=== PATIENT | female | born 1960 | race Caucasian/White ===

== ENCOUNTER → 2018-08-01 | Outpatient (CLI) | payer BC ==
--- NOTE | 2018-08-01 12:13 | REPMRS ---
Patient History The patient states she had a clinical breast exam in 07/2018. Patient is postmenopausal and is nulliparous. Family history of pancreatic cancer at age 50 in maternal uncle. No Hormone Replacement Therapy 3D TOMOSYNTHESIS WAS PERFORMED. Digital Woman Screen Mammo: August 01, 2018 - Exam #: [id number] Bilateral CC and MLO view(s) were taken. Technologist: Wanda Philip, Technologist Prior study comparison: May 27, 2015, digital woman screen mammo performed at [facility]. February 22, 2014, digital woman screen mammo performed at [facility] to [facility]. FINDINGS: There are scattered fibroglandular densities. There has been no change in the appearance of the mammogram from the prior studies. There is a mild amount of residual fibroglandular tissue which is fairly symmetric. There is no interval development of dominant mass, architectural distortion, or clustered microcalcification suggestive of malignancy. Assessment: BI-RADS/ACR category 1 mammogram. Negative Mammogram. Recommendation Routine screening mammogram in 1 year (for women over age 40). This mammogram was interpreted with the aid of an FDA-approved computer-aided dectection system. Electronically Signed By: Harjinder Cohn MD 08/01/18 9768
== END ==
LOC: M WHC 10:32
PROVIDERS: ATTEND Nurse Practitioner Family
DX: Z12.31 Encounter for screening mammogram for malignant neoplasm of breast (principal); Z78.0 Asymptomatic menopausal state

== ENCOUNTER → 2018-08-01 | Outpatient (REF) | payer BC ==
[2018-08-06 14:09] LABS: HPV HYBRID CAPTURE II Negative (Negative)
== END ==
LOC: M SFHCWAGY 11:03
PROVIDERS: ATTEND Nurse Practitioner Family
DX: Z12.72 Encounter for screening for malignant neoplasm of vagina (principal); N95.2 Postmenopausal atrophic vaginitis
CPT/HCPCS: 87624; G0123

== ENCOUNTER → 2019-04-14 | Outpatient (CLI) | payer BC ==
--- NOTE | 2019-04-14 09:33 | REP ---
Digital diagnostic unilateral left breast mammography with CAD, 3-D tomography, and focused left breast sonography. History: Palpable lump present times 2 weeks. Comparison mammography August 01, 2018, May 27, 2015, and February 22, 2014. Mammographic findings: A opaque skin marker is affixed to the skin at the site of the palpable lump. Mammographically, this projects in the superior and medial quadrant of the left breast. I see that the patient directed the solutions developer to the 12 o'clock position. In any event there is no abnormal mammographic mass or spiculated density in any portion of the left breast. No microcalcification or architectural distortion is seen. No worrisome skin change is seen. Scattered fibroglandular elements are seen unchanged from prior mammography. Sonographic findings: Focused left breast sonography in the area of the palpable lump shows slightly heterogeneous fibroglandular background echotexture. No mass is seen by ultrasound. No cyst, architectural distortion, or area of suspicious shadowing is appreciated. Impression: BIRADS 1: BI-RADS/ACR category 1 mammogram. Negative Mammogram. BIRADS category 1 negative findings. Clinical followup is advised. This mammogram was interpreted with the aid of an FDA-approved computer-aided detection system. The patient states she had a clinical breast exam in March 2019. The patient letter being requested is m2. This patient's estimated Tyrer-Cuzick lifetime risk assessment for the breast cancer is 6.8 %.
== END ==
LOC: M WHC 07:37
PROVIDERS: ATTEND Nurse Practitioner
DX: N63.21 Unspecified lump in the left breast, upper outer quadrant (principal)
CPT/HCPCS: 76642; 77065; G0279

== ENCOUNTER → 2019-10-09 | Outpatient (CLI) | payer BC ==
--- NOTE | 2019-10-27 08:36 | REPMRS ---
Patient History The patient states she had a clinical breast exam in 09/2019. Patient is postmenopausal and is nulliparous. Family history of pancreatic cancer at age 50 in maternal uncle. No Hormone Replacement Therapy Digital Woman Screen Mammo: October 09, 2019 - Exam #: [id number] Bilateral CC and MLO view(s) were taken. Technologist: Roula Ramirez, Technologist Prior study comparison: April 14, 2019, left breast diagnostic unilateral mammo performed at [facility]. August 01, 2018, bilateral digital woman screen mammo performed at [facility]. May 27, 2015, digital woman screen mammo performed at [facility]. February 22, 2014, digital woman screen mammo performed at [facility]. FINDINGS: There are scattered fibroglandular densities. The Volpara volumetric breast density category is:B. There is a 8 mm somewhat spiculated neodensity visible on today'ys CC view. It is not visible on the MLO. Th=is merits further evaluation. There has been no other change in the appearance of the mammogram from the prior studies. There is a mild amount of scattered fibroglandular density which is fairly symmetric. There is no interval development of dominant mass, architectural distortion, or grouped microcalcification suggestive of malignancy. 3-D tomosynthesis shows no additional findings. Assessment: BI-RADS/ACR category 0 mammogram, Incomplete: Need additional imaging evaluation and/or prior mammograms for comparison. Recommendation Ultrasound and special view mammogram of the left breast. This patient's Lifetime Breast Cancer Risk is estimated at 6.6 %. This mammogram was interpreted with the aid of an FDA-approved computer-aided dectection system. Electronically Signed By: Cuauhtemoc Sandoval MD 10/27/19 0801
== END ==
LOC: M WHC 09:59
PROVIDERS: ATTEND Nurse Practitioner Family
DX: Z12.31 Encounter for screening mammogram for malignant neoplasm of breast (principal)

== ENCOUNTER → 2019-10-26 | Outpatient (CLI) | payer BC ==
--- NOTE | 2019-11-23 15:53 | REP ---
DIAGNOSTIC MAMMOGRAM LEFT BREAST HISTORY: Evaluate density on screening mammogram 10/09/2019. FINDINGS: Spot compression magnification views of the left breast are performed in the MLO and CC projections, as well as a left ML tomographic sequence. Comparison made with multiple prior studies, most recently 10/09/2019. The exam of 10/09/2019 showed a possible small spiculated neodensity only on the left CC view somewhat medially in the mid third of the left breast. Todays additional views show no persistent spiculated density, particularly on the magnified spot compression view in the CC projection. There is no change when compared to other prior exams. IMPRESSION: ACR 1 negative mammogram left breast. No persistent neodensity on todays additional views. The findings are negative. Recommend follow-up mammogram in one year. Letter 1. MTDD
== END ==
LOC: M WHC 07:56
PROVIDERS: ATTEND Nurse Practitioner Family
DX: R92.2 Inconclusive mammogram (principal)

== ENCOUNTER → 2020-12-02 | Outpatient (CLI) | payer BC ==
--- NOTE | 2020-12-02 11:29 | REPMRS ---
Patient History The patient states she had a clinical breast exam in November 2020. Family history of pancreatic cancer at age 50 in maternal uncle. No Hormone Replacement Therapy Patient states no breast complaints today. Patient has signed MRS History Sheet. Digital Woman Screen Mammo: December 02, 2020 - Exam #: [id number] Bilateral CC and MLO view(s) were taken. Technologist: Sita Rascon, Technologist Prior study comparison: October 09, 2019, bilateral digital woman screen mammo performed at [facility]. August 01, 2018, bilateral digital woman screen mammo performed at [facility]. May 27, 2015, digital woman screen mammo performed at [facility]. FINDINGS: There are scattered fibroglandular densities. The Volpara volumetric breast density category is:B. There has been no change in the appearance of the mammogram from the prior studies. There is a mild amount of scattered fibroglandular density which is fairly symmetric. There is no interval development of dominant mass, architectural distortion, or grouped microcalcification suggestive of malignancy. 3-D tomosynthesis shows no additional findings. Assessment: BI-RADS/ACR category 1 mammogram. Negative Mammogram. Recommendation Routine screening mammogram of both breasts in 1 year (for women over age 40). This patient's [facility] Lifetime Breast Cancer Risk is estimated at 6.4 %. This mammogram was interpreted with the aid of an FDA-approved computer-aided dectection system. Electronically Signed By: Cuauhtemoc Sandoval MD 12/02/20 1129
== END ==
LOC: M WHC 09:32
PROVIDERS: ATTEND Advanced Practice Midwife
DX: Z12.31 Encounter for screening mammogram for malignant neoplasm of breast (principal)

== ENCOUNTER → 2022-07-13 | Outpatient (CLI) | payer BC | LOC: M WHC 13:32 | PROVIDERS: ATTEND Advanced Practice Midwife | DX: Z12.31 Encounter for screening mammogram for malignant neoplasm of breast (principal) ==

== ENCOUNTER → 2022-07-13 | Outpatient (REF) | payer BC | LOC: M SFHCWAGY 15:21 | PROVIDERS: ATTEND Advanced Practice Midwife | DX: R39.89 Other symptoms and signs involving the genitourinary system (principal) ==

== ENCOUNTER → 2022-08-09 | Outpatient (CLI) | payer BC ==
[~2022-08-09] MED LIST: GASTROGRAFIN SOLUTION 30ML ONE; ISOVUE-370 76% 100ML VIAL ONE
== END ==
LOC: M PLAIMG 12:04
PROVIDERS: ATTEND Advanced Practice Midwife
DX: N82.8 Other female genital tract fistulae (principal)
CPT/HCPCS: 74177; Q9963; Q9967

== ENCOUNTER → 2023-08-09 | Outpatient (CLI) | payer BC | LOC: M WHC 11:48 | PROVIDERS: ATTEND Advanced Practice Midwife | DX: Z12.31 Encounter for screening mammogram for malignant neoplasm of breast (principal) ==

== ENCOUNTER → 2024-10-30 | Outpatient (CLI) | payer BC | LOC: M WHC 11:09 | PROVIDERS: ATTEND Advanced Practice Midwife | DX: Z12.31 Encounter for screening mammogram for malignant neoplasm of breast (principal); R92.313 Mammographic fatty tissue density, bilateral breasts ==